=== PATIENT | male | born 1960 | race Caucasian/White ===

== ENCOUNTER → 2024-06-02 16:14 | Outpatient (CLI) | payer MEDICARE, OTHER, SELFPAY ==
--- NOTE | 2024-06-02 16:18 | DI.MRI.S_ITS ---
PROCEDURE: MR SHOULDER RT WO CON INDICATIONS: PAIN IN RT SHOULDER TECHNIQUE: Noncontrast oblique coronal T2 fast spin echo with fat saturation, oblique sagittal T1 spin echo and T2 fast spin echo with fat saturation, axial T1 spin echo and T2 fast spin echo with fat saturation through the shoulder. COMPARISON: None. FINDINGS: Image quality: Excellent. Rotator cuff: In the supraspinatus, there is full-thickness, full width tear at the footprint, with mild tendon retraction to the level of the humeral head. Moderate tendinosis of the infraspinatus. Small amount of fluid tracking along the myotendinous junction of the infraspinatus, suggestive of low-grade interstitial tear. The teres minor is unremarkable. The subscapularis is unremarkable. No muscle edema or fatty atrophy. Bones and bursae: Mild degenerative changes acromioclavicular joint. Type 1 acromion. No os acromiale. Mild subacromial/subdeltoid bursitis. No acute fracture. No focal chondral defect the glenohumeral joint. Capsule and soft tissues: Superior labral tear, extending anteriorly to the anterior superior labrum. No paralabral cyst. Mild tenosynovitis of the extra-articular biceps tendon. The intra-articular biceps tendon is intact. Small glenohumeral effusion. Mild subcoracoid bursitis. IMPRESSION: 1. Mild degenerative changes of the acromioclavicular joint. 2. Full-thickness, full width tear of the supraspinatus with mild tendon retraction. 3. Low-grade tear of the infraspinatus. 4. Mild tenosynovitis of the extra-articular biceps tendon. Dictated by: Alicia Kellogg M.D. on 06/03/2024 at 9:11 Approved by: Alicia Kellogg M.D. on 06/03/2024 at 9:19
== END ==
LOC: MRI 16:18
PROVIDERS: PCP Family Medicine; Referring Provider Family Medicine; Visit Provider Family Medicine
DX: M75.121 Complete rotator cuff tear or rupture of right shoulder, not specified as traumatic (principal); M75.51 Bursitis of right shoulder; M75.21 Bicipital tendinitis, right shoulder; M25.511 Pain in right shoulder
CPT/HCPCS: 73221

== ENCOUNTER → 2025-03-25 11:11 | Outpatient (CLI) | payer MEDICARE, OTHER, SELFPAY ==
--- NOTE | 2025-03-25 11:13 | DI.MRI.S_ITS ---
PROCEDURE: MR PELVIC PROSTATE PROTOCOL INDICATIONS: 64 y/o M w/ elevated PSA, please eval TECHNIQUE: Coronal HASTE, axial T1 FSE with fat saturation, 3-plane nonbreath-hold T2 FSE. After the administration of contrast, dynamic axial, delayed axial and coronal VIBE or 2-D FLASH with fat saturation through the pelvis. Diffusion weighted imaging and ADC was performed. COMPARISON: None. FINDINGS: Image quality: Diffusion weighted and dynamic contrast enhanced images are diagnostic. Prostate: Gland size is 4.8 x 4.1 x 5.5 cm; ellipsoid gland volume is 56 mL. PSA density is 0.11 Transitional zone heterogenous nodules are present, either well encapsulated or mostly encapsulated, compatible with PI-RADS 1 or 2 likely BPH nodules. Right peripheral zone mid gland posterolateral lesion measures 1 x 0.6 cm (4/15). DWI score 3. T2 score 3. DCE negative. PI-RADS 3. Genitourinary system: Urinary bladder is trabeculated, usually from chronic obstruction Bowel and peritoneum: No bowel obstruction. No pathologic ascites Nodes and vessels: No aneurysmal vessel identified. No enlarged lymph nodes by size criteria in the pelvis Soft tissues: Small fat containing right inguinal hernia. Bones: No suspicious/aggressive appearing osseous enhancement. IMPRESSION: Prostatomegaly and sequelae of BPH, which is the predominant abnormality on this MRI. There is a small PI-RADS 3 lesion in the right posterolateral mid gland peripheral zone. No seminal vesicle or extracapsular involvement. No pelvic lymphadenopathy by size criteria. No aggressive osseous abnormality. Dictated by: Gil Chi M.D. on 03/25/2025 at 15:41 Approved by: Gil Chi M.D. on 03/25/2025 at 15:45
== END ==
LOC: MRI 11:12
PROVIDERS: PCP Family Medicine; Referring Provider Urology; Visit Provider Urology
DX: N40.0 Benign prostatic hyperplasia without lower urinary tract symptoms (principal); N42.9 Disorder of prostate, unspecified; N32.89 Other specified disorders of bladder; K40.90 Unilateral inguinal hernia, without obstruction or gangrene, not specified as recurrent; R97.20 Elevated prostate specific antigen [PSA]
CPT/HCPCS: 72197; A9579

== ENCOUNTER → 2025-04-16 14:34 | Outpatient (CLI) | payer MEDICARE, OTHER, SELFPAY | PROVIDERS: PCP Family Medicine; Visit Provider Urology | DX: N32.81 Overactive bladder (principal); N40.1 Benign prostatic hyperplasia with lower urinary tract symptoms; R97.20 Elevated prostate specific antigen [PSA]; Z68.29 Body mass index [BMI] 29.0-29.9, adult | CPT/HCPCS: 51741; 51798; 52000; 81002; 87086; 99214 ==

== ENCOUNTER → 2025-06-09 10:50 | Outpatient (CLI) | payer MEDICARE, OTHER, SELFPAY | PROVIDERS: Visit Provider Urology | DX: N40.1 Benign prostatic hyperplasia with lower urinary tract symptoms (principal); N32.81 Overactive bladder | CPT/HCPCS: 87086 ==